=== PATIENT | male | born 1975 | race African-American/Black ===

== ENCOUNTER 2017-01-02 14:24 | Inpatient (IN) | payer MEDICAID ==
[2017-01-02] MEDS ORDERED: ASPIRIN 81 MG TABLET, CHEWABLE PO ONE (14:25)
--- NOTE | 2017-01-02 14:49 | ER Document Report ---
ED Cardiac - General Mode of Arrival: Medic Information source: Patient TRAVEL OUTSIDE OF THE [place] IN LAST 30 DAYS: No - HPI Patient complains to provider of: Chest pain, Other - tachycardia Cardiac risk factors: Smoker Associated symptoms: Other - see notes above <TYRONE DAVIS - Last Filed: 01/02/17 15:29> <FIDEL MARTINEZ - Last Filed: 01/02/17 22:36> - General Chief Complaint: Chest Pain Stated Complaint: CHEST PAIN Time Seen by Provider: 01/02/17 14:31 Notes: 41 year old male with history of hypertension and GERD presents to the ED via EMS complaining of chest pain that started at around 1230 this afternoon. Patient reports when he stood up after sitting on the couch, his heart began to race and he developed chest pain. EMS was called and was given two doses of adenosine (6mg and 12mg) and his SVT resolved after the second dose. Patient reports that he has never experienced anything like this before. Patient also reports that he was checked for thyroid insufficiency secondary to having trouble "using the bathroom", but all tests returned normal. (TYRONE DAVIS) - Related Data Allergies/Adverse Reactions: Penicillins Allergy (Verified 01/02/17 21:13) Home Medications: Current Home Medications L.acidoph & Paracasei,B.lactis [Probiotic] 1 each PO DAILY 01/02/17 [History] Lisinopril/Hydrochlorothiazide [Lisinopril-Hctz 20-25 mg Tab] 1 each PO DAILY [History] Omeprazole [Omeprazole] 1 tab PO BID 01/02/17 [History] Past Medical History - General Information source: Patient - Social History Smoking Status: Current Every Day Smoker Frequency of alcohol use: Occasional Family History: Reviewed & Not Pertinent - Past Medical History Cardiac Medical History: Reports: Hx Hypertension GI Medical History: Reports: Hx Gastroesophageal Reflux Disease - Immunizations Hx Diphtheria, Pertussis, Tetanus Vaccination: Yes <TYRONE DAVIS - Last Filed: 01/02/17 15:29> Review of Systems - Review of Systems Constitutional: No symptoms reported EENT: No symptoms reported Cardiovascular: See HPI, Chest pain, Heart racing Respiratory: No symptoms reported Gastrointestinal: No symptoms reported Genitourinary: No symptoms reported Male Genitourinary: No symptoms reported Musculoskeletal: No symptoms reported Skin: No symptoms reported Hematologic/Lymphatic: No symptoms reported Neurological/Psychological: No symptoms reported -: Yes All other systems reviewed and negative <TYRONE DAVIS - Last Filed: 01/02/17 15:29> Physical Exam - General General appearance: Alert In distress: None - HEENT Head: Normocephalic, Atraumatic Eyes: Normal Extraocular movements intact: Yes Pupils: PERRL - Respiratory Respiratory status: No respiratory distress Chest status: Nontender Breath sounds: Normal Chest palpation: Normal - Cardiovascular Rhythm: Regular Heart sounds: Normal auscultation - Abdominal Inspection: Normal Distension: No distension Tenderness: Nontender - Back Back: Normal - Extremities General upper extremity: Normal inspection, Normal ROM General lower extremity: Normal inspection, Normal ROM - Neurological Neuro grossly intact: Yes - Psychological Associated symptoms: Normal affect, Normal mood - Skin Skin Temperature: Warm Skin Moisture: Dry Skin Color: Normal <TYRONE DAVIS - Last Filed: 01/02/17 15:29> Course - Laboratory Result Diagrams: 01/02/17 14:42 01/02/17 14:42 <TYRONE DAVIS - Last Filed: 01/02/17 15:29> - Laboratory Result Diagrams: 01/02/17 14:42 01/02/17 14:42 - Diagnostic Test Radiology reviewed: Image reviewed, Reports reviewed - Normal chest x-ray - EKG Interpretation by Dc EKG shows normal: Sinus rhythm, [place], Intervals, QRS Complexes. abnormal: ST-T Waves - Borderline T-wave abnormalities Rate: Normal - 99 Rhythm: NSR When compared to previous EKG there are: Changes noted - Consults Dr. Durant Consulted provider: will see as inpatient Dr. Kendrick Time consulted: 22:30 Consulted provider: will come to ER <FIDEL MARTINEZ - Last Filed: 01/02/17 22:36> - Vital Signs Vital signs: Temp Pulse Resp BP Pulse Ox 17 130/85 H 98 01/02/17 21:01 01/02/17 21:00 01/02/17 21:01 - Laboratory Laboratory results interpreted by me: 01/02/17 01/02/17 01/02/17 14:42 14:42 14:42 WBC 3.8 L Seg Neutrophils % 41.1 L Lymphocytes % 47.7 H Absolute Neutrophils 1.5 L Sodium 145.1 H AST 63 H ALT 98 H Creatine Kinase 634 H TSH 0.28 L 01/02/17 19:36 WBC Seg Neutrophils % Lymphocytes % Absolute Neutrophils Sodium AST ALT Creatine Kinase 676 H TSH - EKG Interpretation by Me Additional EKG results interpreted by me: 01/02/17 22:35 The 12-lead done by EMS before and after cardioversion showed that he had a narrow complex supraventricular tachycardia rate of 222 and then converted to a sinus tachycardia with a rate of 100. There were no delta waves seen. (FIDEL MARTINEZ) Discharge <TYRONE DAVIS - Last Filed: 01/02/17 15:29> - Discharge Admitting Provider: Hospitalist Unit Admitted: Telemetry <FIDEL MARTINEZ - Last Filed: 01/02/17 22:36> - Discharge Clinical Impression: Paroxysmal supraventricular tachycardia, Elevated troponin Condition: Stable Scribe Attestation: 01/02/17 22:34 I personally performed the services described in the documentation, reviewed and edited the documentation which was dictated to the scribe in my presence, and it accurately records my words and actions. (FIDEL MARTINEZ) Scribe Documentation - Scribe Written by Shiela:: Shiela Frank, 01/02/2017 1451 acting as scribe for :: Eduarda <TYRONE DAVIS - Last Filed: 01/02/17 15:29>
[2017-01-02 14:56] LABS: ABSOLUTE EOSINOPHILS # (AUTO) 0.1 10^3/uL (0.0-0.6); ABSOLUTE LYMPHOCYTES (AUTO) 1.8 10^3/uL (0.5-4.7); ABSOLUTE MONOCYTES (AUTO) 0.3 10^3/uL (0.1-1.4); ABSOLUTE NEUT (AUTO) 1.5 10^3/uL (1.7-8.2); EOSINOPHILS % (AUTO) 2.2 % (0-6); HEMATOCRIT 44.5 % (37.9-51.0); HEMOGLOBIN 15.3 g/dL (13.5-17.0); HGB HCT DIFFERENCE 1.4; LYMPHOCYTES % (AUTO) 47.7 % (13-45); MEAN CORPUSCULAR HEMOGLOBIN 33.4 pg (27.0-33.4); MEAN CORPUSCULAR HGB CONC 34.4 g/dL (32.0-36.0); MEAN CORPUSCULAR VOLUME 97 fl (80-97); RED BLOOD COUNT 4.59 10^6/uL (4.35-5.55); RED CELL DISTRIBUTION WIDTH 13.9 % (11.5-14.0); SEGMENTED NEUTROPHILS % (AUTO) 41.1 % (42-78); WHITE BLOOD COUNT 3.8 10^3/uL (4.0-10.5)
[2017-01-02 15:16] LABS: ALANINE AMINOTRANSFERASE 98 U/L (21-72); ALBUMIN 4.3 g/dL (3.5-5.0); ALKALINE PHOSPHATASE 80 U/L (38-126); ANION GAP 12 (5-19); ASPARTATE AMINO TRANSFERASE 63 U/L (17-59); BILIRUBIN,DIRECT 0.3 mg/dL (0.0-0.4); BILIRUBIN,TOTAL 0.6 mg/dL (0.2-1.3); BLOOD UREA NITROGEN 11 mg/dL (7-20); CALCIUM 9.9 mg/dL (8.4-10.2); CARBON DIOXIDE 30 mmol/L (22-30); CHLORIDE 103 mmol/L (98-107); CREATINE KINASE 634 U/L (55-170); CREATININE RESULT 1.09 mg/dL (0.52-1.25); GLUCOSE 104 mg/dL (75-110); POTASSIUM 3.8 mmol/L (3.6-5.0); SODIUM 145.1 mmol/L (137-145); TOTAL PROTEIN 7.5 g/dL (6.3-8.2)
[2017-01-02 15:26] LABS: CREATINE KINASE MB 0.73 ng/mL (<4.55); TROPONIN I 0.013 ng/mL
[2017-01-02 15:32] LABS: FREE T3 4.5 pg/mL (2.77-5.27)
[2017-01-02 15:45] LABS: THYROID STIMULATING HORMONE 0.28 uIU/mL (0.47-4.68)
[2017-01-02] MEDS ORDERED: NORMAL SALINE 1000 ML 1,000 ML IV ONE ×2 (16:51→22:24)
[2017-01-02 18:49] LABS: APPEARANCE,URINE CLEAR; BILIRUBIN,URINE NEGATIVE (NEGATIVE); GLUCOSE, URINE NEGATIVE (NEGATIVE); KETONES,URINE NEGATIVE (NEGATIVE); LEUKOCYTE ESTERASE,URINE NEGATIVE (NEGATIVE); NITRITE,URINE NEGATIVE (NEGATIVE); PROTEIN,URINE NEGATIVE (NEGATIVE); URINE SPECIFIC GRAVITY 1.016; UROBILINOGEN,URINE NEGATIVE mg/dL (<2.0)
[2017-01-02 19:15] LABS: URINE BARBITURATES SCREEN NEGATIVE; URINE METHADONE SCREEN NEGATIVE; URINE OPIATES LOW NEGATIVE; URINE PHENCYCLIDINE SCREEN NEGATIVE
[2017-01-02 20:23] LABS: TROPONIN I 0.201 ng/mL
[2017-01-02 22:27] LABS: ADD ON TESTING BLD IN LAB ACKNOWLEDGE
[2017-01-02] MEDS ORDERED: HEPARIN SOD (PORCINE) 5,000 UNIT/ML 1 ML SYRINGE SUBCUT ONE (22:45)
[2017-01-02] MEDS ORDERED: ATORVASTATIN CALCIUM 80 MG TABLET PO ONE (22:45)
[2017-01-02 22:58] LABS: MAGNESIUM 1.9 mg/dL (1.6-2.3)
--- NOTE | 2017-01-02 23:36 | EKG REPORT ---
SEVERITY:- BORDERLINE ECG - SINUS RHYTHM BORDERLINE T WAVE ABNORMALITIES : Confirmed by: Bernabe Engel 02-Jan-2017 23:36:17
[2017-01-03 01:25] LABS: CREATINE KINASE MB 1.19 ng/mL (<4.55); TROPONIN I 0.104 ng/mL
--- NOTE | 2017-01-03 02:52 | PDOC H&P ---
History of Present Illness Admission Date/PCP: 01/02/17 22:30 Patient complains of: Palpitations and chest tightness History of Present Illness: SKY PRICE JR is a 41 year old male with a past medical history of hypertension , nasal polyps, obstructive sleep apnea, and GERD. Who was in his usual state of health until approximately 2 hours prior to presentation with complaint of sudden onset of palpitations and chest tightness without nausea vomiting there was some shortness of breath. He was seen by EMS at the scene with a heart rate of 220 believed to be SVT. He received adenosine 6 mg followed by 12 mg resulting in sinus tachycardia. Patient admits several previous episodes that are short-lived resolving spontaneously. He admits daily compliance with Cpap, denies new medications or binging alcohol or excessive caffeine. In the emergency room his found to have elevated troponin and a chest x-ray suggestive of congestive heart failure. He is referred to the hospitalist for admission, denying chest pain. Past Medical History Cardiac Medical History: Reports: Hypertension Pulmonary Medical History: Reports: Sleep Apnea GI Medical History: Reports: Gastroesophageal Reflux Disease Psychiatric Medical History: Reports: Tobacco Dependency Past Surgical History Past Surgical History: Reports: Other - Nasal polypectomy Social History Information Source: Patient Lives with: Family Smoking Status: Current Every Day Smoker Cigarettes Packs Per Day: 1 Number of Years Smokin Drugs: None - Advance Directive Resuscitation Status: Full Code Family History Family History: Hypertension Parental Family History Reviewed: Yes Children Family History Reviewed: Yes Sibling(s) Family History Reviewed.: Yes Medication/Allergy Home Medications: L.acidoph & Paracasei,B.lactis [Probiotic] 1 each PO DAILY 01/02/17 Lisinopril/Hydrochlorothiazide [Lisinopril-Hctz 20-25 mg Tab] 1 each PO DAILY Omeprazole [Omeprazole] 1 tab PO BID 01/02/17 Allergies/Adverse Reactions: Penicillins Allergy (Verified 01/02/17 21:13) Review of Systems Constitutional: ABSENT: chills, fever(s), headache(s), weight gain, weight loss Eyes: ABSENT: visual disturbances Ears: ABSENT: hearing changes Cardiovascular: ABSENT: chest pain, dyspnea on exertion, edema, orthropnea, palpitations Respiratory: ABSENT: cough, hemoptysis Gastrointestinal: ABSENT: abdominal pain, constipation, diarrhea, hematemesis, hematochezia, nausea, vomiting Genitourinary: ABSENT: dysuria, hematuria Musculoskeletal: ABSENT: joint swelling Integumentary: ABSENT: rash, wounds Neurological: ABSENT: abnormal gait, abnormal speech, confusion, dizziness, focal weakness, syncope Psychiatric: ABSENT: anxiety, depression, homidical ideation, suicidal ideation Endocrine: ABSENT: cold intolerance, heat intolerance, polydipsia, polyuria Hematologic/Lymphatic: ABSENT: easy bleeding, easy bruising Physical Exam Vital Signs: Temp Pulse Resp BP Pulse Ox 97.6 F 75 18 131/69 H 97 01/03/17 00:38 01/03/17 01:01 01/03/17 00:38 01/03/17 00:38 01/03/17 00:38 General appearance: PRESENT: no acute distress, cooperative, well-developed, well-nourished Head exam: PRESENT: atraumatic, normocephalic Eye exam: PRESENT: conjunctiva pink, EOMI, PERRLA, other - Mild exophthalmos. ABSENT: scleral icterus Ear exam: PRESENT: normal external ear exam Mouth exam: PRESENT: moist, tongue midline Neck exam: PRESENT: full ROM, thyromegaly - Diffuse goiter, other - Parotid enlargement bilaterally. ABSENT: carotid bruit, JVD, lymphadenopathy, meningismus, tenderness, tracheal deviation Respiratory exam: PRESENT: crackles, prolonged expiratory phas, symmetrical. ABSENT: rales, rhonchi, unlabored, wheezes Cardiovascular exam: PRESENT: gallop, RRR, +S1, +S2, systolic murmur Pulses: PRESENT: normal dorsalis pedis pul Vascular exam: PRESENT: normal capillary refill GI/Abdominal exam: PRESENT: normal bowel sounds, soft. ABSENT: distended, guarding, mass, organolmegaly, rebound, tenderness Rectal exam: PRESENT: deferred Extremities exam: PRESENT: full ROM. ABSENT: calf tenderness, clubbing, pedal edema Neurological exam: PRESENT: alert, awake, oriented to person, oriented to place , oriented to time, oriented to situation, CN II-XII grossly intact. ABSENT: motor sensory deficit Psychiatric exam: PRESENT: appropriate affect, normal mood. ABSENT: homicidal ideation, suicidal ideation Skin exam: PRESENT: dry, intact, warm. ABSENT: cyanosis, rash Results Laboratory Results: 01/03/17 00:52 CK-MB (CK-2) 1.19 Troponin I 0.104 Impressions: Chest X-Ray 01/02/17 14:25 IMPRESSION: NO ACUTE RADIOGRAPHIC FINDING IN THE CHEST. Assessment & Plan - Diagnosis (1) Paroxysmal supraventricular tachycardia Is this a current diagnosis for this admission?: YesPlan: New and Acute continue cardiac monitoring obtain serial cardiac enzymes and risk factors for coronary artery disease, 2-D echo consider cardiology consult. (2) Elevated troponin Is this a current diagnosis for this admission?: YesPlan: Likely secondary to SVT continue trending cardiac enzymes consider cardiac stress test and/or cardiology consultation (3) Graves disease Is this a current diagnosis for this admission?: YesPlan: Patient has a diffuse goiter I'll obtain thyroid function study and thyroid receptor antibody and thyroid ultrasound. Consider propanolol and methimazole (4) Obstructive sleep apnea Is this a current diagnosis for this admission?: YesPlan: Resume outpatient cpap - Time Time Spent: 50 to 70 Minutes - Inpatient Certification Medical Necessity: Need Close Monitoring Due to Risk of Patient Decompensation
[2017-01-03] MEDS ORDERED: LANSOPRAZOLE 30 MG TAB.RAP.DR PO SCH (06:00)
[2017-01-03] MEDS: HEPARIN SOD (PORCINE) 5,000 UNIT/ML 1 ML SYRINGE SUBCUT SCH ×3 (06:47→21:30)
[2017-01-03 07:28] LABS: ANION GAP 14 (5-19); BLOOD UREA NITROGEN 11 mg/dL (7-20); CALCIUM 9.4 mg/dL (8.4-10.2); CARBON DIOXIDE 26 mmol/L (22-30); CHLORIDE 103 mmol/L (98-107); CHOLESTEROL 213.49 mg/dL (0-200); CREATINE KINASE 604 U/L (55-170); CREATININE RESULT 0.93 mg/dL (0.52-1.25); Direct HDL 24 mg/dL (>40); GLUCOSE 103 mg/dL (75-110); POTASSIUM 3.7 mmol/L (3.6-5.0); SODIUM 143.1 mmol/L (137-145); TRIGLYCERIDES 208 mg/dL (<150)
[2017-01-03 07:38] LABS: CREATINE KINASE MB 1.06 ng/mL (<4.55); TROPONIN I 0.046 ng/mL
[2017-01-03 07:39] LABS: DIRECT LDL 135 mg/dL (<100)
[2017-01-03 07:43] LABS: VLDL CHOLESTEROL 41.6 mg/dL (10-31)
[2017-01-03] MEDS: DOCUSATE SODIUM 100 MG CAPSULE PO SCH ×2 (09:46→17:30)
[2017-01-03] MEDS ORDERED: (PENDING PHARMACY ID) (Omeprazole [Omeprazole] 1 TAB) PO SCH (10:00)
[2017-01-03] MEDS ORDERED: METOPROLOL TARTRATE 25 MG TABLET PO ONE (13:00)
[2017-01-03 13:34] LABS: CREATINE KINASE MB 1.28 ng/mL (<4.55); TROPONIN I 0.031 ng/mL
--- NOTE | 2017-01-03 13:51 | EKG REPORT ---
SEVERITY:- NORMAL ECG - SINUS RHYTHM : Confirmed by: Bernabe Engel 03-Jan-2017 13:51:00
[2017-01-03] MEDS ORDERED: NICOTINE 14 MG/24 HR PATCH.TD24 TD PRN (15:16)
--- NOTE | 2017-01-03 15:19 | PDOC PROGRESS REPORT ---
Subjective Progress Note for:: 01/03/17 Subjective:: Patient has had no further runs of SVT. Patient denies chest pain, shortness of breath, abdominal pain, nausea, vomiting , fevers, chills, diarrhea, constipation, headache, new onset weakness. Patient denies recently taking any antihistamines or cold medications and also denies the use of coffee or energy drinks. Patient does report regular alcohol usage. And does smoke. Physical Exam Vital Signs: Temp Pulse Resp BP Pulse Ox 97.6 F 73 18 131/69 H 97 01/03/17 00:38 01/03/17 07:00 01/03/17 00:38 01/03/17 00:38 01/03/17 00:38 Intake & Output 01/02/17 01/03/17 01/04/17 06:59 06:59 06:59 Intake Total 0 Output Total 200 Balance -200 Weight 122.8 kg Exam: General: Awake alert and oriented x3, no acute respiratory distress HEENT: AT/NC, PERRL, EOMI, oropharynx is moist, pink, no scleral icterus, no conjunctival injection Neck: No JVD, trachea midline Chest: Prolonged expiratory phase, Clear to auscultation bilaterally, no wheezes rhonchi or rales CV: Regular rate and rhythm, normal S1 and S2, no murmur, rub, or gallop Abdomen: Soft, nontender to palpation, nondistended, active bowel sounds; no rebound, rigidity, or guarding Extremities: No cyanosis or edema; + clubbing Neuro: Cranial nerves II through XII are grossly intact without focal deficits; awake alert and oriented x3 Psych: Normal mood and affect Results Laboratory Results: 01/03/17 00:52 CK-MB (CK-2) 1.19 Troponin I 0.104 Impressions: Chest X-Ray 01/02/17 14:25 IMPRESSION: NO ACUTE RADIOGRAPHIC FINDING IN THE CHEST. Assessment & Plan - Diagnosis (1) Paroxysmal supraventricular tachycardia Is this a current diagnosis for this admission?: YesPlan: Patient's cardiac enzymes are trending down. Appreciate cardiology input. Will initiate patient on metoprolol 12.5 by mouth twice a day. Patient is scheduled for stress test or morning. (2) Leukopenia Qualifiers: Leukopenia type: unspecified Qualified Code(s): D72.819 - Decreased white blood cell count, unspecified Is this a current diagnosis for this admission?: YesPlan: Likely secondary to accepted racial variant will monitor. (3) Hyperlipidemia Qualifiers: Hyperlipidemia type: unspecified Qualified Code(s): E78.5 - Hyperlipidemia, unspecified Is this a current diagnosis for this admission?: YesPlan: Patient on Lipitor. (4) Elevated troponin Is this a current diagnosis for this admission?: YesPlan: This is likely secondary to strain. (5) Graves disease Is this a current diagnosis for this admission?: YesPlan: Patient reports recently having seen a transportation solutions manager at [facility]. He has a follow-up appointment with this person. Current free T3 and free T4 levels are normal. Thyroid ultrasound reveals diffuse goiter and colloidal cyst. (6) Obstructive sleep apnea Is this a current diagnosis for this admission?: YesPlan: Patient may use own CPAP (7) Tobacco abuse Is this a current diagnosis for this admission?: YesPlan: Patient has been advised to stop. Counseling last greater than 3 minutes. Patient is offered nicotine replacement. (8) Obesity with serious comorbidity Is this a current diagnosis for this admission?: YesPlan: Patient has been advised to alter his diet and to exercise modestly after discussing this with his primary care physician - Time Time Spent with patient: 25-34 minutes Medications reviewed and adjusted accordingly: Yes Anticipated discharge: Home Within: within 24 hours
[2017-01-03] MEDS: LANSOPRAZOLE 30 MG TAB.RAP.DR PO SCH (15:43)
--- NOTE | 2017-01-03 17:21 | XCELERA REPORT ---
[address] [address] Transthoracic Echocardiogram Report Name: SERGIO PRICENIGEL Griffin JR Age: 41 yrs Gender: Male : 1975 Patient Status: Inpatient Patient Location: 5\S\532\S\A Study Date: 01/03/2017 10:18 AM Height: 72 in Weight: 235 lb BSA: 2.3 m2 Procedure: A two-dimensional transthoracic echocardiogram with color flow and Doppler was performed. Study Quality: Fair. Reason For Study: svt, elevated troponin History: svt, elevated troponin. Ordering Physician: ALEXA GREEN Performed By: Jenny Brown Interpretation Summary The left ventricle is normal in size. There is normal left ventricular wall thickness. LV EF is > than 60% Left ventricular systolic function is normal. Doppler measurements suggest normal left ventricular diastolic function The left ventricular wall motion is normal. There is no thrombus. There is no ventricular septal defect visualized. The right ventricle is normal in size and function. The left atrial size is normal. There is no evidence of mitral valve prolapse. There is no vegetation seen on the mitral valve. There is no mitral valve stenosis. There is a trace amount of mitral regurgitation There is no aortic valve stenosis There is no LVOT obstruction. No aortic regurgitation is present. There is no tricuspid stenosis. There is a trace amount of tricuspid regurgitation Right ventricular systolic pressure is normal. RVSP is 27 mm of Hg ,with RA mean of 5. There is no pulmonic valvular stenosis. There is no pulmonic valvular regurgitation. The aortic root is normal size. There is no pericardial effusion. MMode/2D Measurements \T\ Calculations RVDd: 2.7 cm LVIDd: 4.9 cm FS: 38.9 % Ao root diam: 2.6 cm IVSd: 0.95 cm LVIDs: 3.0 cm EDV(Teich): 112.8 ml LVPWd: 1.0 cm ESV(Teich): 34.8 ml Ao root area: 5.2 cm2 EF(Teich): 69.1 % LA dimension: 3.7 cm Doppler Measurements \T\ Calculations MV E max aleksandra: MV P1/2t max aleksandra: Ao V2 max: LV V1 max P.2 cm/sec 57.2 cm/sec 117.8 cm/sec 4.7 mmHg MV A max aleksandra: MV P1/2t: 62.0 msec Ao max PG: LV V1 max: 45.9 cm/sec 5.6 mmHg 108.3 cm/sec MV E/A: 1.2 MVA(P1/2t): 3.6 cm2 MV dec slope: 270.6 cm/sec2 MV dec time: 0.21 sec PA V2 max: TR max aleksandra: 79.5 cm/sec 233.5 cm/sec PA max PG: TR max P.8 mmHg 2.5 mmHg Left Ventricle The left ventricle is normal in size. There is normal left ventricular wall thickness. LV EF is > than 60%. Left ventricular systolic function is normal. Doppler measurements suggest normal left ventricular diastolic function. The left ventricular wall motion is normal. There is no thrombus. There is no ventricular septal defect visualized. Right Ventricle The right ventricle is normal in size and function. Atria The right atrium is normal. The left atrial size is normal. The interatrial septum is intact with no evidence for an atrial septal defect. Mitral Valve There is no evidence of mitral valve prolapse. There is no vegetation seen on the mitral valve. There is no mitral valve stenosis. There is a trace amount of mitral regurgitation. Aortic Valve There is no aortic valvular vegetation. There is no aortic valve stenosis. There is no LVOT obstruction. No aortic regurgitation is present. Tricuspid Valve There is no tricuspid stenosis. There is a trace amount of tricuspid regurgitation. Right ventricular systolic pressure is normal. RVSP is 27 mm of Hg ,with RA mean of 5. Pulmonic Valve There is no pulmonic valvular stenosis. There is no pulmonic valvular regurgitation. Great Vessels The aortic root is normal size. Effusions There is no pericardial effusion. : ALEXA GREEN > Dania Fischer
[2017-01-03] MEDS: METOPROLOL TARTRATE 25 MG TABLET PO SCH (20:13)
[2017-01-03] MEDS: LISINOPRIL 10 MG TABLET PO SCH (21:30)
[2017-01-03] MEDS: LACTOBACILLUS ACIDOPHILUS 250 MG TAB PO SCH (21:30)
--- NOTE | 2017-01-03 21:38 | CONSULTATION REPORT E ---
Consultation Report NAME: SKY PRICE : 1975 AGE: 41Y DATE: 01/03/2017 ROOM: 532 A TO: BRENDA RODRIGUEZ M.D. FROM: ALEXA GREEN M.D. Requesting Physician REASON FOR CONSULTATION: SVT and elevated troponin I. NOTE: Dr. Harjeet Lerner in the ER called me last night about this patient and explained to me the circumstances of the patient having SVT and having converted to sinus rhythm and that there was a troponin I leak. I reviewed the chart on the computer and decided that the patient was stable enough to stay here, and since he had abnormal liver function tests had asked him to stop the patient's Dyazide and continue the lisinopril. I again saw the patient today on 01/03/2017 and I was with the patient from 11:30 a.m. to 12:10 p.m., and a total of 40 minutes were spent on this patient with more than 50% of the time spent on direct patient care and also reviewing the patient's medications and discussions with the attending physician adjusting the patient's medications and adding medications. HISTORY OF PRESENT ILLNESS: The patient is a 41-year-old Afro Tajik male who is a full-time student with a history of hypertension, GERD, and obstructive sleep apnea who wears a CPAP and also history of nasal polyps without any aspirin allergy. The patient states that about 2 hours prior to his coming to the emergency room, the patient sat up in bed and got up to walk, at which time he had sudden onset of palpitations with severe shortness of breath, very rapid beating of the heart, and chest tightness. This lasted for about 25 minutes until the PMT came. The PMT found the patient to be in rapid SVT at a rate of about 220-230 with a stable blood pressure. They initially gave him 6 mg of adenosine and subsequently 12 mg IV adenosine which the patient converted. The subsequent EKG showed normal sinus rhythm without any acute changes, but the SVT had significant ST-segment depression, which to me is a little more than expected with repolarization changes associated with an SVT. Also, there are no strips when the patient converted from the SVT to sinus rhythm to see if this is atrial flutter or an SVT, but I think it is an SVT, since there was an abrupt sensation of the SVT and the patient resumed sinus rhythm. The patient at present denies any chest pain or discomfort. There is no chest tightness. There is no PND or orthopnea, shortness of breath or leg edema. He denies any past history of palpitations or SVT. PAST MEDICAL HISTORY: Positive for history of hypertension. The patient is on lisinopril/hydrochlorothiazide. He has a history of sleep apnea and uses his CPAP regularly, the last was checked in August. He has history of nasal polyps and also gastric polyps that were removed by polypectomy. He had nasal polypectomy but he states that they have regrown. He states it is difficult for him to breathe through his nose. He has no past history of SVT, palpitations, DC or anginal symptoms, coronary artery disease, or symptoms of heart failure. There is no PND or orthopnea or syncope. There is history of diabetes mellitus or thyroid disease. There is no history of COPD or asthma. He denies any history of TIA, CVA, migraines or headaches. There is no history of chronic kidney disease. The patient states that in the past he had ablation of the thyroid gland with iodine but he states subsequent to that he has not had any need to take thyroid replacement. He also has a history of GERD controlled with omeprazole. MEDICATIONS: 1. Lisinopril/hydrochlorothiazide 1 tablet daily, the dose is unknown. 2. He takes omeprazole 40 mg p.o. b.i.d. and at bedtime. 3. He is also on beta lactamase 1 capsule p.o. q.12 h. HOSPITAL MEDICATIONS: 1. Atorvastatin 80 mg p.o. x1 and 80 mg p.o. at bedtime. 2. Colace 100 mg p.o. b.i.d. 3. Heparin 5000 units subcutaneously q.8 h. 4. He did get normal saline bolus of 1000 mL and subsequently the patient is on a 60 mL/hr normal saline drip. 5. He is on lactobacillus, acidophilus, 250 mg p.o. q.12 h. 6. He is on lansoprazole 30 mg p.o. b.i.d. 7. He is on lisinopril 10 mg p.o. q.12 h. 8. After my recommendation he is being started on metoprolol 12.5 mg p.o. q.12 h. with the first dose now. 9. He is also on Nicoderm transdermal patch 40 mg/24 hours. ALLERGIES: PENICILLIN. SOCIAL HISTORY: The patient smokes. He also drinks alcohol but in moderation. There is no heavy alcohol usage. FAMILY HISTORY: Positive for hypertension in his parents and also his sister, and one of his sisters had a CVA. There is no history of coronary artery disease in the family. PAST SURGICAL HISTORY: Positive for left eye surgery and then gastric polypectomy and nasal polypectomy. REVIEW OF SYMPTOMS: CONSTITUTIONAL: Denies any fever, chills or rigors. HEENT: No headaches or head injury. No dizziness except when he had this episode of SVT. Eyes, no history of amblyopia or diplopia. No history of amaurosis fugax. Ears, no history of hearing loss, no tinnitus, no history of recurrent ear infections. Nose, history of nasal polyps present but no history of nosebleeds. Mouth, no history of altered taste sensation, no history of ulcers in the mouth, no bleeding from the gums. Throat, there is no odynophagia or dysphagia. There are no recurrent sore throats. SKIN: There is no pruritus. There is yellowish discoloration of the skin. There is no psoriasis and there is no skin cancer. NECK: No neck pain, no goiter. No lymphadenopathy. LUNGS: There is no history of cough or sputum production. No history of asthma or COPD. No history of symptoms of respiratory tract infection or pneumonia. No pleuritic chest pain. No history of pulmonary embolism. He has a history of sleep apnea and uses a CPAP regularly, and when he wakes up in the morning he feels fresh. He recently had a CPAP titrated in August of this year. CARDIAC: History of hypertension but no history of congestive heart failure. This is the first episode of palpitation/SVT for the patient. There is no prior history of palpitations. There is no history of PND, orthopnea or leg edema. There is no history of coronary artery disease. The patient did have chest pain and he had the elevated troponin I which is now trending down. There is no history of syncope. There is no history of congenital heart disease. ENDOCRINE: No history of diabetes mellitus. The patient states about a year ago he had ablation of his thyroid with radioactive iodine. He is not sure of all the details but he is not on any replacement now. There is no polydipsia or polyuria. No history of heat or cold intolerance. MUSCULOSKELETAL: Denies arthritis or collagen vascular disease. RENAL: No history of symptoms of enlarged prostate, no chronic kidney disease, no symptoms of UTI, no history of hematuria, pyuria or dysuria. CENTRAL NERVOUS SYSTEM: No history of TIA or CVA. No history of headaches, migraines or seizures. History of sleep apnea. No history of gait imbalance. PSYCHIATRIC: No history of anxiety or depression. No suicidal ideation. VASCULAR: No history of calf or buttock claudication. No history of DVT. HEMATOLOGICAL: No history of bleeding diathesis. No history of clotting disorders. PHYSICAL EXAMINATION: GENERAL: Patient is morbidly obese at present in no acute distress. VITAL SIGNS: He is afebrile with a temperature of 97.5 degrees Fahrenheit, pulse is 78 beats per minute, blood pressure 120/69, respirations are 16 per minute, 02 sats are 98% on room air. HEENT: Head is atraumatic, normocephalic. Eyes: Pupils are equal, round, regular, reactive to light and accommodation. Extraocular movements are normal. There is no conjunctival pallor. There is no scleral icterus. Ears: Tympanic membranes are intact. External auditory canals are clear. Nose: There is no deviated nasal septum. There are some nasal polyps present. Mouth: Mucous membranes of the mouth are moist. Tongue is moist. There are no ulcers. There is no bleeding from the gums. Throat: There is no redness of the oropharynx. There are no exudates in the throat. SKIN: There are no skin rashes. There are no skin lesions . There is no petechia or ecchymosis. NECK: Supple. There is no JVD. There is no lymphadenopathy. There is no goiter. There is no neck stiffness. There is no JVD. Carotids are equal. There is no bruit. Trachea is central. LUNGS: Clear to auscultation and percussion. HEART: S1 and S2 are heard. There is no S3 gallop. There is no S4 gallop. There is a systolic murmur in the left sternal border and the apex with no radiation. There is no rub. ABDOMEN: Soft, nontender. There is no hepatosplenomegaly. Bowel sounds are well heard. There are no tender areas or masses. There is no rebound, guarding or rigidity. EXTREMITIES: Femorals are well felt. Leg pulses are well felt. There is no femoral bruits. There is no pedal edema. There is no DVT or cellulitis. There is no calf tenderness. There is no cyanosis or clubbing. CENTRAL NERVOUS SYSTEM: The patient is conscious, awake, alert, oriented x3 with no focal deficits. PSYCHIATRIC: The patient's judgment and insight are intact. His affect is normal. DIAGNOSTIC TEST RESULTS: The patient's chest x-ray is negative. The heart rate is normal. There is no CHF. The patient's EKG shows sinus rhythm with significant ST-segment depression, which converted with adenosine, most likely AV lucien reentrant tachycardia. The patient's EKG this morning show sinus rhythm, within normal limits. The MI interval is not short. There are no delta waves. The patient's white count is 3800, hemoglobin is 15.3, hematocrit is 44.5, and the platelet count is 177,000. The patient's sodium is 143.1, potassium is 3.7, chloride 103, CO2 is 26, the patient's BUN was 7, creatinine 0.93, GFR is greater than 60, glucose is 103, calcium is 9.4, and his magnesium yesterday was 1.9. His troponin I which initially was 0.188 asha to 0.201 and then has trended down to 0.104 and then 0.046, and subsequently 0.031. His CPK-MBs are negative. On 01/02, the patient's total bilirubin was 0.6, direct bilirubin 0.3, his AST is elevated at 63, ALT is 98. The patient's alkaline phosphatase is 80, patient's CK is 634. The patient's albumin is 4.3, total protein is 7.5, The patient's TSH is 0.28, free T4 was normal at 1.19, free T3 is normal at 4.50. His triglycerides are 208 and his LDL cholesterol is 135 which is high, his HDL cholesterol is low at 24. IMPRESSION: 1. Supraventricular tachycardia converted to sinus rhythm. 2. Elevated troponin I most likely secondary to SVT, but the patient does have multiple CAD risk factors. 3. Hypertension. 4. Abnormal LFTs. Can be caused by a combination of alcohol and hydrochlorothiazide. 5. Gastroesophageal reflux disease. 6. Multiple coronary artery disease risk factors such as age +/-, hypertension, dyslipidemia and smoking. Also, the patient had significant ST-segment depression during his SVT, which can be duenthe SVT causing repolarization changes, but also the patient's troponin I was elevated, which also can be due to SVT, but since the patient has multiple CAD risk factors, needs further risk stratification. 7. Obstructive Sleep Apnea. Continue sleep apnea. 8. Dyslipidemia with low HDL, high LDL, and hyper-triglyceridemia. Unfortunately due to abnormal liver function tests, at present time cannot start the patient on anti-lipid medication. Discussed diet with the patient. 9. Tobacco abuse disorder. Smoking cessation counseling down. RECOMMENDATIONS: I would stop the patient's atorvastatin and stop the patient's hydrochlorothiazide, continue lisinopril, start the patient on aspirin 81 mg enteric coated, start the patient on Lopressor initially at 12.5 mg p.o. q.12 h. and increase it as tolerated. Would strongly recommend an echo for LV ejection fraction and also will schedule the patient for IV Lexiscan Cardiolite stress test in the a.m. since the troponin I are trending. I would hold the Lopressor tonight and tomorrow morning prior to stress testing and start back later. Note: Later would recommend a 30-day event monitor as an outpatient. CODE STATUS: The patient is a FULL CODE. His is his surrogate healthcare decision maker. Note: Forty minutes spent on this patient with more than 50% of the time spent on direct patient care and also reviewing the patient's medications, adjusting the patient's medications, and discussions with the hospitalist taking care of the patient regarding the management plan of this patient and also discussed with patient and patient's sisters present. When the echo is done, will discuss the findings with the patient. Thanking you. DICTATING PHYSICIAN: BRENDA RODRIGUEZ M.D. [id number] PHY#: [id number] ID: [id number] JOB#: [id number] ACCT: [id number] cc:BRENDA RODRIGUEZ M.D. > MTDD
[2017-01-03] MEDS ORDERED: PARACASEI B LACTIS PO SCH (22:00)
[2017-01-03] MEDS ORDERED: ATORVASTATIN CALCIUM 80 MG TABLET PO SCH (22:00)
[2017-01-03] MEDS ORDERED: ACIDOPH PO SCH (22:00)
[2017-01-04] MEDS: HEPARIN SOD (PORCINE) 5,000 UNIT/ML 1 ML SYRINGE SUBCUT SCH ×2 (06:17→13:24)
[2017-01-04 07:47] LABS: ALANINE AMINOTRANSFERASE 93 U/L (21-72); ALBUMIN 3.8 g/dL (3.5-5.0); ALKALINE PHOSPHATASE 66 U/L (38-126); ASPARTATE AMINO TRANSFERASE 60 U/L (17-59); BILIRUBIN,DIRECT 0.4 mg/dL (0.0-0.4); BILIRUBIN,TOTAL 0.8 mg/dL (0.2-1.3); TOTAL PROTEIN 7.1 g/dL (6.3-8.2)
[2017-01-04] MEDS: DOCUSATE SODIUM 100 MG CAPSULE PO SCH (10:49)
[2017-01-04] MEDS: LANSOPRAZOLE 30 MG TAB.RAP.DR PO SCH (10:49)
[2017-01-04] MEDS: METOPROLOL TARTRATE 25 MG TABLET PO SCH (10:50)
[2017-01-04] MEDS: LACTOBACILLUS ACIDOPHILUS 250 MG TAB PO SCH (10:51)
[2017-01-04] MEDS: LISINOPRIL 10 MG TABLET PO SCH (10:51)
[2017-01-04] MEDS ORDERED: REGADENOSON INJ 0.4 MG/5 ML DISP.SYRIN IV ONE (11:24)
--- NOTE | 2017-01-04 12:06 | EKG REPORT ---
SEVERITY:- BORDERLINE ECG - SINUS RHYTHM BORDERLINE T WAVE ABNORMALITIES : Confirmed by: Bernabe Engel 04-Jan-2017 12:06:35
[2017-01-04 16:16] VITALS: BP 136/76
--- NOTE | 2017-01-04 17:01 | PDOC DISCHARGE SUMMARY ---
General - Admit/Disc Date/PCP Admission Date/Primary Care Provider: 01/03/17 10:57 Discharge Date: 01/04/17 - Discharge Diagnosis (1) Paroxysmal supraventricular tachycardia Is this a current diagnosis for this admission?: Yes (2) Essential hypertension Is this a current diagnosis for this admission?: Yes (3) Transaminitis Is this a current diagnosis for this admission?: Yes (4) Thyroid cyst Is this a current diagnosis for this admission?: Yes (5) Hyperlipidemia Is this a current diagnosis for this admission?: Yes (6) Obstructive sleep apnea Is this a current diagnosis for this admission?: Yes - Additional Information Resuscitation Status: Full Code Discharge Diet: Cardiac Discharge Activity: Activity As Tolerated, Balance Activity w/Rest Home Medications: Adriaacidoph & Mile Jenningslactis [Probiotic] 1 each PO Q12 01/03/17 Omeprazole 40 mg PO BIDACBS 01/03/17 Aspirin 81 mg PO DAILY #1 pkg 01/04/17 Lisinopril [Prinivil 10 mg Tablet] 10 mg PO Q12 #60 tablet 01/04/17 Metoprolol Tartrate [Lopressor 25 mg Tablet] 12.5 mg PO Q12 #60 tablet 01/04/17 Additional Information: Follow-up result all thyroid antibody test as outpatient with primary care physician. History of Present Illness Patient complains of: Palpitation and chest tightness History of Present Illness: SKY PRICE JR is a 41 year old male, history of hypertension, obstructive sleep apnea, developed palpitation and chest tightness a few hours duration, ambulance was called, patient was found to be in SVT where the patient receive adenosine and rectum showed sinus tachycardia. Patient was brought to the emergency room for evaluation. Chest x-ray revealed some congestion. For detailsrefer to history and physical examination performed by the admitting physician. Hospital Course Hospital Course: The patient was admitted to the telemetry. The patient was referred to cardiology for further evaluation. Serial cardiac enzymes were obtained and noted to be abnormal. The patient was began on metoprolol. His liver function tests versus abnormal. Lipid panel was likewise elevated, but due to the abnormality nor recommendations of statin was made. Recommendation of dietary management was instituted. Likewise his diuretic was held and just maintain her on GENEVA inhibitor. Cardiology recommended to maintain the GENEVA inhibitor. 2- D echocardiogram shows no significant wall motion abnormality, no significant valvular defect. Eventually a stress test was performed and reportedly was negative. The patient improved. Tachycardia resolved. Patient cleared by cardiology to be discharged. Patient course was noted for history suggestive of Graves' disease and patient being followed by endocrinology, however the patient's thyroid panel was normal. Thyroid ultrasound shows a thyroid cyst. Thyroid antibody test is pending. He was advised to follow up result on an outpatient basis. Physical Exam Vital Signs: Temp Pulse Resp BP Pulse Ox 97.6 F 78 16 136/76 H 96 01/04/17 15:43 01/04/17 15:43 01/04/17 15:43 01/04/17 15:43 01/04/17 15:43 Intake & Output 01/03/17 01/04/17 01/05/17 06:59 06:59 06:59 Intake Total 2280 Balance 2280 Weight 109.2 kg General appearance: PRESENT: no acute distress, cooperative Head exam: PRESENT: normocephalic Eye exam: PRESENT: EOMI Mouth exam: PRESENT: moist, neck supple Neck exam: ABSENT: JVD Respiratory exam: PRESENT: clear to auscultation trudy Cardiovascular exam: PRESENT: RRR. ABSENT: gallop, systolic murmur GI/Abdominal exam: PRESENT: normal bowel sounds, soft. ABSENT: distended, tenderness Extremities exam: ABSENT: pedal edema Neurological exam: PRESENT: alert, awake, oriented to person, oriented to place , oriented to time, oriented to situation Skin exam: PRESENT: dry, warm. ABSENT: cyanosis Results Laboratory Results: 01/04/17 06:36 Total Bilirubin 0.8 AST 60 H ALT 93 H Alkaline Phosphatase 66 Total Protein 7.1 Albumin 3.8 01/03/17 01/04/17 12:52 06:36 CK-MB (CK-2) 1.28 Troponin I 0.031 < 0.012 Impressions: Chest X-Ray 01/02/17 14:25 IMPRESSION: NO ACUTE RADIOGRAPHIC FINDING IN THE CHEST. Thyroid Ultrasound 01/03/17 00:00 IMPRESSION: Colloid cyst left midpole gland of doubtful significance. No focal solid masses. Qualifiers PATEINT BEING DISCHARGED WITH ANY OF THE FOLLOWING DIAGNOSIS?: No Plan Discharge Plan: Follow-up with primary care physician in one week. Follow-up with Dr. Durant in 1 -2 weeks. Time Spent: Less than 30 Minutes
--- NOTE | 2017-01-04 19:43 | PROGRESS NOTE E ---
Progress Note NAME: SKY PRICE : 1975 AGE: 41Y DATE: 01/04/2017 ROOM: 532 SUBJECTIVE: Note that the patient was seen between 1245 hours and 1330 hours. Note that the patient had no further SVT. He denies any chest pain or discomfort. There are no ventricular arrhythmias on the monitor. There are no atrial arrhythmias on the monitor. There are no A-V blocks or pauses. There is no shortness of breath. There is no PND, orthopnea or palpitations. There are no TIA or CVA symptoms. The patient underwent an IV Lexiscan Cardiolite stress test earlier today, the results of which are given below. OBJECTIVE: GENERAL: On examination, the patient is mildly obese in no acute distress. He is well nourished, well groomed. VITAL SIGNS: He is afebrile with a temperature of 97.3 degrees Fahrenheit, pulse is 80 beats per minute, blood pressure is 131/75, respirations 16 per minute, O2 saturation 98% on room air. HEENT: Head is atraumatic and normocephalic. Eyes, pupils are equal, round, regular, reactive to light and accommodation. Extraocular movements are normal. There is no conjunctival pallor. There is no scleral icterus. Ears, tympanic membranes are intact. External auditory canals are clear. Nose, there is no deviated nasal septum. There are some nasal polyps present. Mouth, mucous membranes are moist. Tongue is moist. There are no ulcers. There is no bleeding from the gums. There is no redness of the oropharynx. There are no exudates in the throat. SKIN: There are no skin rashes. There are no skin lesions. There is no petechia or ecchymosis. NECK: Supple. There is no JVD. There is no lymphadenopathy. There is no goiter. There is no neck stiffness. Carotids are equal. There is no bruit. Trachea is central. LUNGS: Clear to auscultation and percussion. HEART: S1 and S2 are heard. There is no S3 gallop. There is no S4 gallop. There is a systolic murmur at the left sternal border at the apex without radiation. There is no rub. ABDOMEN: Soft, nontender. There is no hepatosplenomegaly. Bowel sounds are well heard. There are no tender areas or masses. There is no rebound, guarding, or rigidity. EXTREMITIES: Femorals are well felt. Leg pulses are well felt. There are no femoral bruits. There is no pedal edema. There is no DVT or cellulitis. There is no calf tenderness. There is no cyanosis or clubbing. CENTRAL NERVOUS SYSTEM: The patient is conscious, awake, alert, oriented x3 with no focal deficits. PSYCHIATRIC: The patient's judgment and insight are intact. His affect was normal. LABORATORY: Note that the patient's troponin-I was less than 0.012 this morning. Yesterday afternoon, it was 0.031. The patient's liver function tests show AST of 60 which is down from 63. The patient's ALT is 93 from prior of 98. ECHOCARDIOGRAM: Note that the patient had an echocardiogram which was discussed with the patient last evening and again today. The echocardiogram shows that the left ventricle is of normal size. There is left ventricular wall thickness and ejection fraction of greater than 60%. Left ventricular systolic function is normal. Doppler measurements suggest normal left ventricular diastolic function. The left ventricular wall motion is normal. There is no thrombus. There is no ventricular septal defect visualized. The right ventricle is normal in size and function. The left atrial size is normal. There is no evidence of mitral valve prolapse. There are no vegetations seen on the mitral valve. There is no mitral valve stenosis. There is trace amount of mitral regurgitation. There is no aortic valve stenosis. There is no LVOT obstruction. There is no aortic regurgitation present. There is no tricuspid stenosis. There is trace amount of tricuspid regurgitation. The right ventricular systolic pressure is within normal limits and is 27 mmHg with a right atrial mean of 5. There is no pericardial effusion. IMAGING: The patient had an IV Lexiscan Cardiolite stress test today and this showed no reversible ischemia and there was no myocardial infarction or scar. The left ventricular ejection fraction was estimated at 48%. respectively the rest and stress images, but visually they were greater than 55. Also, there was evidence that the patient's LV ejection fraction is within normal limits. IMPRESSION: 1. SVT CONVERTED TO SINUS RHYTHM, REMAINS IN SINUS RHYTHM ON SMALL DOSE OF BETA KAT. 2. ELEVATED TROPONIN-I MOST LIKELY SECONDARY TO SVT. THIS HAS COME DOWN. 3. HYPERTENSION. 4. ABNORMAL LFTS. THE LFTS ARE STILL ABNORMAL, BUT SLIGHTLY IMPROVED. 5. GASTROESOPHAGEAL REFLUX DISEASE. 6. OBSTRUCTIVE SLEEP APNEA ON CPAP. 7. DYSLIPIDEMIA WITH LOW LDL, HIGH HDL AND ALSO HYPERTRIGLYCERIDEMIA. RECOMMENDATIONS: 1. Continue lisinopril. 2. Continue beta kat. Will increase as tolerated as an outpatient. 3. Continue aspirin. 4. The patient's echocardiographic findings were rediscussed with the patient. Also discussed the findings of the stress test with the patient. Discussed also the abnormal liver function tests with the patient. Would recommend a *------* to make sure that the current dose of beta kat is adequate. 5. Will try to increase the patient's metoprolol to 25 mg p.o. b.i.d. as an outpatient. 6. After questioning the patient, he desires to follow up with me which I have discussed with the hospitalist. 7. The patient has been advised to continue BiPAP. 8. Smoking cessation counseling was also given and also the patient was counseled against the use of alcohol in view of the abnormal liver function tests. 9. Will also recommend that the patient be referred to a commercial construction superintendent as an outpatient. 10. I given my cell phone number to the patient to call me if he has any problems. Will have my office arrange for 30-day event monitor . NOTE: 25 minutes spent on this patient, more than 50% of the time spent on direct patient care. Also, the patient's medications were reviewed and also discussed discharge medications with the hospitalist. Note, the patient will be sent home on the current medical therapy and further outpatient testing will be done and this has been explained to the patient, hence medical decision making was at least moderate complexity. Will sign off the case. DICTATING PHYSICIAN: BRENDA RODRIGUEZ M.D. [id number] PHY#: [id number] ID: [id number] JOB#: [id number] ACCT: [id number] cc: >
--- NOTE | 2017-01-04 21:04 | DRAGON STRESS TEST REPORT ---
Intravenous Lexiscan Cardiolite stress test using single photon emmision computerized tomography. Date of procedure: 01/04/2017 Ordering Provider: Dr. Dania Fischer Patient's status: Inpatient Indication: SVT and Chest pain. Coronary risk factors: Age +/-, hypertension, dyslipidemia and tobacco abuse disorder. Resting EKG: Sinus Rhythm. Within Normal Limits Stress EKG: No changes of ischemia. The patient had no chest pain or discomfort, and there were no arrhythmias seen. Reason for termination: Protocol. Conclusions: Normal EKG and hemodynamic response to IV Lexiscan. Nuclear data: At rest the patient was given 15.09 millicuries of technetium 99m sestamibi injected intravenously. As per protocol rest non gated SPECT images were obtained. Subsequently the patient was given intravenous Lexiscan at a dose of 0.4 mg in 5 mL intravenously, followed by flush with normal saline. Subsequently the stress dose of 48.7 millicuries of technetium 99m sestamibi was injected intravenously. As per protocol stress gated images were obtained. Nuclear interpretation: Review of images showed that all segments of the myocardium had normal perfusion at rest, and normal perfusion post stress with IV Lexiscan. All segments of the myocardium had normal motion, contraction, and thickening by gated study. T. I D. ratio was normal at 1.00. Computer read rest, and stress left ventricular ejection fraction were 48 %, and 48 %, respectively. Visually both the stress and rest ejection fractions were normal, and greater than 55%. Conclusion: 1. There is no scintigraphic evidence of Lexiscan induced myocardial ischemia. 2. There is no scintigraphic evidence of myocardial infarction/scar. Recommendations: Aggressive risk factor modification, and treating the underlying co- morbidities , especially tobacco cessation counseling.. MTDD
== END 2017-01-04 17:30 | disposition home or self-care (01) | DRG 310 ==
LOC: ER 14:24 → EH 22:30 → UNDOADMOB 22:50 → EH 22:50 → 5 01-03 00:25 → OBSVTOIN 01-03 10:57
PROVIDERS: ADMIT Internal Medicine; ATTEND Internal Medicine
PROC: 5A09457 Assistance with Respiratory Ventilation, 24-96 Consecutive Hours, Continuous Positive Airway Pressure (ICD-10-PCS; principal; 2017-01-03)
DX: I47.1 Supraventricular tachycardia (principal); I10 Essential (primary) hypertension; E78.5 Hyperlipidemia, unspecified; G47.33 Obstructive sleep apnea (adult) (pediatric); K21.9 Gastro-esophageal reflux disease without esophagitis; F17.210 Nicotine dependence, cigarettes, uncomplicated; E05.00 Thyrotoxicosis with diffuse goiter without thyrotoxic crisis or storm; J33.9 Nasal polyp, unspecified; R79.89 Other specified abnormal findings of blood chemistry; I08.1 Rheumatic disorders of both mitral and tricuspid valves; E66.01 Morbid (severe) obesity due to excess calories; Z68.32 Body mass index [BMI] 32.0-32.9, adult; Z79.82 Long term (current) use of aspirin; Z79.899 Other long term (current) drug therapy; Z86.010 Personal history of colon polyps; Z88.0 Allergy status to penicillin; Z82.49 Family history of ischemic heart disease and other diseases of the circulatory system; Z82.3 Family history of stroke
CPT/HCPCS: 36415; 71010; 76536; 78452; 80048; 80053; 80061; 80076; 80307; 81001; 82550; 82553; 83519; 83735; 84439; 84443; 84481; 84484; 85025; 93005; 93010; 93017; 93306; 94660; 96372; 99285; A9500; G0378; J1644; J2785; J3490; J7030; Q9969

== ENCOUNTER 2017-04-08 18:28 | Emergency (ER) | payer MEDICAID ==
--- NOTE | 2017-04-08 19:19 | EKG REPORT ---
SEVERITY:- BORDERLINE ECG - SINUS RHYTHM BORDERLINE T WAVE ABNORMALITIES : Confirmed by: Pierce Gar MD 08-Apr-2017 19:18:32
--- NOTE | 2017-04-08 19:30 | ER Document Report ---
ED Medical Screen (RME) - General Chief Complaint: Abdominal Pain Stated Complaint: CHEST PAIN Time Seen by Provider: 04/08/17 19:22 Notes: 41-year-old male patient complains of constipation for the last several days. Normally takes MiraLAX for problems like this. He complains of pain in the upper abdomen making him feel like he is full and backed up and twisting type pain in the left lower quadrant. There is no fever, there is no nausea vomiting or diarrhea. I have greeted and performed a rapid initial assessment of this patient. A comprehensive ED assessment and evaluation of the patient, analysis of test results and completion of the medical decision making process will be conducted by additional ED providers. TRAVEL OUTSIDE OF THE [place] IN LAST 30 DAYS: No - Related Data Allergies/Adverse Reactions: Penicillins Allergy (Verified 01/02/17 21:13) Past Medical History - Past Medical History Cardiac Medical History: Reports: Hx Hypertension Pulmonary Medical History: Reports: Hx Sleep Apnea Renal/ Medical History: Denies: Hx Peritoneal Dialysis GI Medical History: Reports: Hx Gastroesophageal Reflux Disease Past Surgical History: Reports: Other - Nasal polypectomy - Immunizations Hx Diphtheria, Pertussis, Tetanus Vaccination: Yes Physical Exam - Vital signs Vitals: Temp Pulse Resp BP Pulse Ox 98.0 F 80 19 144/92 H 98 04/08/17 18:40 04/08/17 18:40 04/08/17 18:40 04/08/17 18:40 04/08/17 18:40 Course - Vital Signs Vital signs: Temp Pulse Resp BP Pulse Ox 98.0 F 80 19 144/92 H 98 04/08/17 18:40 04/08/17 18:40 04/08/17 18:40 04/08/17 18:40 04/08/17 18:40
--- NOTE | 2017-04-08 19:53 | RADIOLOGY REPORT (SQ) ---
EXAM DESCRIPTION: KUB/ABDOMEN (SINGLE VIEW) COMPLETED DATE/TIME: 04/08/2017 7:36 pm REASON FOR STUDY: constipation, abd pain COMPARISON: None. NUMBER OF VIEWS: One view. TECHNIQUE: Supine radiographic image of the abdomen acquired. LIMITATIONS: None. FINDINGS: BOWEL GAS PATTERN: Normal bowel gas pattern. No dilated loops. CALCIFICATIONS: No suspicious calcifications. SOFT TISSUES: No gross mass or suggestion of organomegaly. HARDWARE: None in the abdomen. BONES: No acute fracture. No worrisome bone lesions. OTHER: No other significant finding. IMPRESSION: NO RADIOGRAPHIC EVIDENCE FOR ACUTE ABDOMINAL DISEASE. TECHNICAL DOCUMENTATION: JOB ID: [id number] [facility]- All Rights Reserved
--- NOTE | 2017-04-08 21:37 | ER Document Report ---
HPI - HPI Pain Level: 3 Notes: Patient is a 41-year-old male with a history of gastroparesis, GERD, hypertension who presents the ED complaining of constipation 4-5 days. Patient states that he has not had a good bowel movement since then. Patient states that he has been using MiraLAX with minimal relief. Patient states that he does have chronic issues with constipation due to gastroparesis. Denies any history of diabetes. Patient complains of a left lower quadrant pain and generalized bloating. Pain is described as a sharp, crampy pain. His bowel movements are usually small and hard. He has not noticed any melena or hematochezia. Patient states that he has not had anything to eat today because he feels like the food is just sitting in his stomach. Patient denies any weight loss. No other concerns or complaints at this time. Patient states that he is not taking any specific medication for his gastroparesis. Denies any headache, fever, URI, sore throat, chest pain, palpitations, syncope, cough , shortness of breath, wheeze, dyspnea, nausea/vomiting/diarrhea, urinary retention, dysuria, hematuria, loss of control of bowel or bladder, back pain, numbness/tingling, saddle anesthesia, muscle paralysis/weakness, or rash. - ROS Notes: REVIEW OF SYSTEMS: CONSTITUTIONAL : Denies fever, chills, or sweats. Denies recent illness. EENT: Denies eye, ear, throat, or mouth pain or symptoms. Denies nasal or sinus congestion or discharge. Denies throat, tongue, or mouth swelling or difficulty swallowing. CARDIOVASCULAR: Denies chest pain. Denies palpitations or racing or irregular heart beat. Denies ankle edema. RESPIRATORY: Denies cough, cold, or chest congestion. Denies shortness of breath, difficulty breathing, or wheezing. GASTROINTESTINAL: see hpi GENITOURINARY: Denies difficulty urinating, painful urination, burning, frequency, blood in urine, or discharge. MUSCULOSKELETAL: Denies back or neck pain or stiffness. Denies joint pain or swelling. SKIN: Denies rash, lesions or sores. NEUROLOGICAL: Denies confusion or altered mental status. Denies passing out or loss of consciousness. Denies dizziness or lightheadedness. Denies headache. Denies weakness or paralysis or loss of use of either side. Denies problems with gait or speech. Denies sensory loss, numbness, or tingling. ALL OTHER SYSTEMS REVIEWED AND NEGATIVE. Dictation was performed using [employer] voice recognition software - REPRODUCTIVE Reproductive: DENIES: : - DERM Skin Color: Normal Past Medical History - Social History Smoking Status: Former Smoker Family History: Hypertension - Past Medical History Cardiac Medical History: Reports: Hx Hypertension Pulmonary Medical History: Reports: Hx Sleep Apnea Renal/ Medical History: Denies: Hx Peritoneal Dialysis GI Medical History: Reports: Hx Gastroesophageal Reflux Disease Past Surgical History: Reports: Other - Nasal polypectomy - Immunizations Hx Diphtheria, Pertussis, Tetanus Vaccination: Yes Vertical Provider Document - CONSTITUTIONAL Agree With Documented VS: Yes Notes: PHYSICAL EXAMINATION: GENERAL: Well-appearing, well-nourished and in no acute distress. LUNGS: Breath sounds clear to auscultation bilaterally and equal. No wheezes rales or rhonchi. HEART: Regular rate and rhythm without murmurs, rubs, gallops. ABDOMEN: Soft, nondistended abdomen. No guarding, no rebound. No masses appreciated. Normal bowel sounds present. No CVA tenderness bilaterally. + mild tenderness to palpation of the left lower quadrant. + stool palpated as well. Musculoskeletal: LE's b/l: FROM to passive/active. Strength 5+/5. Extremities: No cyanosis, clubbing, or edema b/l. Peripheral pulses 2+. Capillary refill less than 3 seconds. NEUROLOGICAL: Normal speech, normal gait. Normal sensory, motor exams PSYCH: Normal mood, normal affect. SKIN: Warm, Dry, normal turgor, no rashes or lesions noted. - INFECTION CONTROL TRAVEL OUTSIDE OF THE [place] IN LAST 30 DAYS: No - RESPIRATORY O2 Sat by Pulse Oximetry: 98 Course - Re-evaluation Re-evalutation: 04/08/17 01:45 Patient is an afebrile, well-hydrated, 41-year-old male who presents the ED with constipation secondary to his gastroparesis. Vitals are stable. PE otherwise unremarkable at this time. X-ray showed abundant stool in the colon without any obstruction at this time. An enema of saline and mineral oil was given x2 in the ED. Miralax 17gm packet was also given. CBC and CMP were unremarkable for acute pathology. Pt states that overall he feels better than he did when he first arrived. Reviewed case with Dr. Orta who is in agreement with discharge/plan. All questions answered that was asked by the patient. Conservative measures otherwise for symptoms. Recheck with his GI doctor/PCM tomorrow. Return precautions reviewed. Return to the ED with any worsening/ concerning symptoms otherwise as reviewed in discharge. Patient is in agreement. Low suspicion/risk for acute appendicitis, bowel obstruction, acute cholecystitis, perforated diverticulitis, incarcerated hernia, pancreatitis, perforated ulcer, peritonitis, or sepsis. Patient is aware that his condition can change from initial presentation and he needs to monitor symptoms closely and seek medical attention if any acute changes. - Vital Signs Vital signs: Temp Pulse Resp BP Pulse Ox 98.0 F 80 19 144/92 H 98 04/08/17 18:40 04/08/17 18:40 04/08/17 18:40 04/08/17 18:40 04/08/17 18:40 - Laboratory Result Diagrams: 04/08/17 00:29 04/08/17 00:29 Discharge - Discharge Clinical Impression: Constipation Qualifiers: Constipation type: unspecified constipation type Qualified Code(s): K59.00 - Constipation, unspecified Condition: Stable Disposition: HOME, SELF-CARE Instructions: Abdominal Pain ([facility]), Constipation ([facility]) Additional Instructions: Push fluids Take home medication as directed Monitor symptoms closely Use MiraLAX daily Recheck with your PCM/gastroenterology tomorrow* Return to the ED with any worsening symptoms and/or development of fever, headache, chest pain, palpitations, syncope, shortness of breath, trouble breathing, abdominal pain, n/v/d, blood in stool/urine, loss of control of bowel /bladder, urinary retention, dysuria, or other worsening symptoms that are concerning to you. Forms: Elevated Blood Pressure Referrals: GASTROENTEROLOGY [Provider Group] - Follow up tomorrow
[2017-04-08] MEDS ORDERED: MINERAL OIL 30 ML UDCUP ONE (21:56)
[2017-04-08] MEDS ORDERED: POLYETHYLENE GLYCOL 3350 POWDER 17 GM/1 PACKET PO ONE (22:56)
[2017-04-09 00:38] LABS: ABSOLUTE BASOPHILS # (AUTO) 0.1 10^3/uL (0.0-0.2); ABSOLUTE EOSINOPHILS # (AUTO) 0.1 10^3/uL (0.0-0.6); ABSOLUTE LYMPHOCYTES (AUTO) 2.7 10^3/uL (0.5-4.7); ABSOLUTE MONOCYTES (AUTO) 0.3 10^3/uL (0.1-1.4); ABSOLUTE NEUT (AUTO) 2.2 10^3/uL (1.7-8.2); HEMATOCRIT 43.2 % (37.9-51.0); HEMOGLOBIN 14.9 g/dL (13.5-17.0); HGB HCT DIFFERENCE 1.5; MEAN CORPUSCULAR HEMOGLOBIN 33.3 pg (27.0-33.4); MEAN CORPUSCULAR HGB CONC 34.4 g/dL (32.0-36.0); MEAN CORPUSCULAR VOLUME 97 fl (80-97); RED BLOOD COUNT 4.47 10^6/uL (4.35-5.55); RED CELL DISTRIBUTION WIDTH 14.1 % (11.5-14.0); WHITE BLOOD COUNT 5.3 10^3/uL (4.0-10.5)
[2017-04-09] MEDS ORDERED: MINERAL OIL 30 ML UDCUP ONE (00:49)
[2017-04-09 01:02] LABS: ALANINE AMINOTRANSFERASE 63 U/L (21-72); ALBUMIN 4.4 g/dL (3.5-5.0); ALKALINE PHOSPHATASE 67 U/L (38-126); ANION GAP 11 (5-19); ASPARTATE AMINO TRANSFERASE 40 U/L (17-59); BILIRUBIN,DIRECT 0.4 mg/dL (0.0-0.4); BILIRUBIN,TOTAL 0.7 mg/dL (0.2-1.3); BLOOD UREA NITROGEN 11 mg/dL (7-20); CALCIUM 10.1 mg/dL (8.4-10.2); CARBON DIOXIDE 27 mmol/L (22-30); CHLORIDE 103 mmol/L (98-107); GLUCOSE 80 mg/dL (75-110); POTASSIUM 3.9 mmol/L (3.6-5.0); SODIUM 141.2 mmol/L (137-145); TOTAL PROTEIN 8.1 g/dL (6.3-8.2)
[2017-04-09 02:05] VITALS: BP 141/89
== END 2017-04-09 02:03 | disposition home or self-care (01) ==
LOC: ER 18:28
DX: K59.00 Constipation, unspecified (principal); K31.84 Gastroparesis; K21.9 Gastro-esophageal reflux disease without esophagitis; I10 Essential (primary) hypertension; Z87.891 Personal history of nicotine dependence
CPT/HCPCS: 93005; 99285; 36415; 83690; 85025; 80053; 74000; 93010; J3490 ×3

== ENCOUNTER 2017-09-21 17:41 | Emergency (ER) | payer MEDICAID ==
--- NOTE | 2017-09-21 18:42 | ER Document Report ---
ED General - General Chief Complaint: Chest Pain Stated Complaint: CHEST PAIN Time Seen by Provider: 09/21/17 18:18 Mode of Arrival: Ambulatory Information source: Patient Notes: 41-year-old male history of SVT palpitations presents with complaints of palpitations. Patient notes he is on metoprolol and with the medication he believes his palpitations worsen, he notes that it only occurs at nighttime when he is laying flat when he is walking exercising he has no such symptoms. Patient denies any fevers or chills denies any actual chest pain but feels a thumping sensation in his chest TRAVEL OUTSIDE OF THE [place] IN LAST 30 DAYS: No - HPI Onset: Last week Onset/Duration: Intermittent Quality of pain: Throbbing Severity: Mild Pain Level: Denies Associated symptoms: Other Exacerbated by: Denies Relieved by: Denies Similar symptoms previously: Yes Recently seen / treated by doctor: Yes - Related Data Allergies/Adverse Reactions: Penicillins Allergy (Verified 09/21/17 17:42) Past Medical History - Social History Smoking Status: Current Every Day Smoker Cigarette use (# per day): Yes Chew tobacco use (# tins/day): No Smoking Education Provided: No Frequency of alcohol use: None Drug Abuse: None Family History: Hypertension Patient has suicidal ideation: No Patient has homicidal ideation: No - Past Medical History Cardiac Medical History: Reports: Hx Hypertension Pulmonary Medical History: Reports: Hx Sleep Apnea Renal/ Medical History: Denies: Hx Peritoneal Dialysis GI Medical History: Reports: Hx Gastroesophageal Reflux Disease Past Surgical History: Reports: Other - Nasal polypectomy - Immunizations Hx Diphtheria, Pertussis, Tetanus Vaccination: Yes Review of Systems - Review of Systems Notes: REVIEW OF SYSTEMS: CONSTITUTIONAL : Denies fever, chills, or sweats. Denies recent illness. EENT: Denies eye, ear, throat, or mouth pain or symptoms. Denies nasal or sinus congestion or discharge. Denies throat, tongue, or mouth swelling or difficulty swallowing. CARDIOVASCULAR: Admits to palpitations RESPIRATORY: Denies cough, cold, or chest congestion. Denies shortness of breath, difficulty breathing, or wheezing. GASTROINTESTINAL: Denies abdominal pain or distention. Denies nausea, vomiting , or diarrhea. Denies blood in vomitus, stools, or per rectum. Denies black, tarry stools. Denies constipation. GENITOURINARY: Denies difficulty urinating, painful urination, burning, frequency, blood in urine, or discharge. MUSCULOSKELETAL: Denies back or neck pain or stiffness. Denies joint pain or swelling. SKIN: Denies rash, lesions or sores. HEMATOLOGIC : Denies easy bruising or bleeding. LYMPHATIC: Denies swollen, enlarged glands. NEUROLOGICAL: Denies confusion or altered mental status. Denies passing out or loss of consciousness. Denies dizziness or lightheadedness. Denies headache. Denies weakness or paralysis or loss of use of either side. Denies problems with gait or speech. Denies sensory loss, numbness, or tingling. Denies seizures. PSYCHIATRIC: Denies anxiety or stress. Denies depression, suicidal ideation, or homicidal ideation. ALL OTHER SYSTEMS REVIEWED AND NEGATIVE. Dictation was performed using [employer] voice recognition software PHYSICAL EXAMINATION: GENERAL: Well-appearing, well-nourished and in no acute distress. HEAD: Atraumatic, normocephalic. EYES: Pupils equal round and reactive to light, extraocular movements intact, sclera anicteric, conjunctiva are normal. ENT: Nares patent, oropharynx clear without exudates. Moist mucous membranes. NECK: Normal range of motion, supple without lymphadenopathy LUNGS: Breath sounds clear to auscultation bilaterally and equal. No wheezes rales or rhonchi. HEART: Regular rate and rhythm without murmurs ABDOMEN: Soft, nontender, nondistended abdomen. No guarding, no rebound. No masses appreciated. Musculoskeletal: Normal range of motion, no pitting or edema. No cyanosis. NEUROLOGICAL: Cranial nerves grossly intact. Normal speech, normal gait. Normal sensory, motor exams PSYCH: Normal mood, normal affect. SKIN: Warm, Dry, normal turgor, no rashes or lesions noted. Physical Exam - Vital signs Vitals: Temp Pulse Resp BP Pulse Ox 97.9 F 73 18 138/86 H 99 09/21/17 18:01 09/21/17 18:01 09/21/17 18:01 09/21/17 18:01 09/21/17 18:01 Course - Re-evaluation Re-evalutation: 09/21/17 19:52 EKG is consistent with a sinus arrhythmia, there is no SVT or life-threatening arrhythmias noted, I believe the patient's presentation is consistent with PVCs lab work noted no significant abnormality, I will have the patient follow-up with his documentation writer Dr. Contreras for Holter monitor placement patient is very happy with this plan After performing a Medical Screening Examination, I estimate there is LOW risk for RUPTURED ESOPHAGUS, PNEUMOTHORAX, PULMONARY EMBOLISM, ACUTE CORONARY SYNDROME, OR THORACIC AORTIC DISSECTION, thus I consider the discharge disposition reasonable. I have reevaluated this patient multiple times and no significant life threatening changes are noted. The patient and I have discussed the diagnosis and risks, and we agree with discharging home with close follow-up. We also discussed returning to the Emergency Department immediately if new or worsening symptoms occur. We have discussed the symptoms which are most concerning (e.g., bloody sputum, worsening pain or shortness of breath) that necessitate immediate return. - Vital Signs Vital signs: Temp Pulse Resp BP Pulse Ox 97.9 F 73 18 138/86 H 99 09/21/17 18:01 09/21/17 18:01 09/21/17 18:01 09/21/17 18:01 09/21/17 18:01 - Laboratory Result Diagrams: 09/21/17 18:50 09/21/17 18:50 Laboratory results interpreted by me: 09/21/17 09/21/17 18:50 18:50 RDW 14.2 H Seg Neutrophils % 33.8 L Lymphocytes % 53.6 H Carbon Dioxide 33 H Calcium 10.5 H - Diagnostic Test Radiology reviewed: Image reviewed, Reports reviewed - EKG Interpretation by Al EKG shows normal: Pierce, Intervals, QRS Complexes. abnormal: Sinus rhythm Discharge - Discharge Clinical Impression: PVC (premature ventricular contraction) Condition: Stable Disposition: HOME, SELF-CARE Instructions: Chest Pain of Unclear Cause ([facility]) Referrals: SANDRITA CONTRERAS MD [ACTIVE STAFF] - Follow up tomorrow
[2017-09-21 19:14] LABS: ABSOLUTE EOSINOPHILS # (AUTO) 0.2 10^3/uL (0.0-0.6); ABSOLUTE LYMPHOCYTES (AUTO) 2.9 10^3/uL (0.5-4.7); ABSOLUTE MONOCYTES (AUTO) 0.5 10^3/uL (0.1-1.4); ABSOLUTE NEUT (AUTO) 1.8 10^3/uL (1.7-8.2); BASOPHILS % (AUTO) 0.2 % (0-2); EOSINOPHILS % (AUTO) 3.5 % (0-6); HEMATOCRIT 45.6 % (37.9-51.0); HEMOGLOBIN 15.6 g/dL (13.5-17.0); LYMPHOCYTES % (AUTO) 53.6 % (13-45); MEAN CORPUSCULAR HEMOGLOBIN 32.4 pg (27.0-33.4); MEAN CORPUSCULAR HGB CONC 34.2 g/dL (32.0-36.0); MEAN CORPUSCULAR VOLUME 95 fl (80-97); MONOCYTES % (AUTO) 8.9 % (3-13); PLATELET COUNT 216 10^3/uL (150-450); RED BLOOD COUNT 4.81 10^6/uL (4.35-5.55); RED CELL DISTRIBUTION WIDTH 14.2 % (11.5-14.0); SEGMENTED NEUTROPHILS % (AUTO) 33.8 % (42-78); TOTAL CELLS COUNTED % (AUTO) 100 %; WHITE BLOOD COUNT 5.4 10^3/uL (4.0-10.5)
[2017-09-21 19:36] LABS: ALANINE AMINOTRANSFERASE 51 U/L (21-72); ALBUMIN 4.4 g/dL (3.5-5.0); ALKALINE PHOSPHATASE 72 U/L (38-126); ANION GAP 7 (5-19); ASPARTATE AMINO TRANSFERASE 32 U/L (17-59); BILIRUBIN,DIRECT 0.2 mg/dL (0.0-0.4); BILIRUBIN,TOTAL 0.5 mg/dL (0.2-1.3); BLOOD UREA NITROGEN 10 mg/dL (7-20); CALCIUM 10.5 mg/dL (8.4-10.2); CARBON DIOXIDE 33 mmol/L (22-30); CHLORIDE 104 mmol/L (98-107); GLUCOSE 78 mg/dL (75-110); SODIUM 143.5 mmol/L (137-145); TOTAL PROTEIN 7.7 g/dL (6.3-8.2)
[2017-09-21 20:47] VITALS: BP 124/88
--- NOTE | 2017-09-22 11:56 | EKG REPORT ---
SEVERITY:- BORDERLINE ECG - SINUS ARRHYTHMIA, RATE 60-83 BORDERLINE T ABNORMALITIES, LATERAL LEADS : Confirmed by: Dania Fischer MD 22-Sep-2017 11:55:58
== END 2017-09-21 19:55 | disposition home or self-care (01) ==
LOC: ER 17:41
DX: I49.3 Ventricular premature depolarization (principal); I10 Essential (primary) hypertension; Z79.899 Other long term (current) drug therapy; F17.200 Nicotine dependence, unspecified, uncomplicated; Z88.0 Allergy status to penicillin
CPT/HCPCS: 36415; 80053; 83735; 85025; 93005; 93010; 99285

== ENCOUNTER → 2017-10-29 | Outpatient (CLI) | payer MEDICAID ==
--- NOTE | 2017-10-29 15:53 | XCELERA REPORT ---
[address] [address] Tel: [phone] Fax: [phone] Lower Extremity Arterial Evaluation Name: SKY PRICE JR Age: 42 yrs Gender: Male : 1975 Patient Status: Outpatient Patient Location: [facility] Study Date: 10/29/2017 01:44 PM Procedure: Ankle brachial indicies performed. Reason For Study: PAIN Ordering Physician: SANDRITA CONTRERAS Performed By: Ashley Easton Right Side Arterial Evaluation IRAIS:1.07. Left Side Arterial Evaluation IRAIS:1.04. Interpretation Summary Ankle Brachial indices and waveforms are within normal limits. : SANDRITA CONTRERAS > Alex Lopez
== END ==
LOC: SP 13:41
PROVIDERS: ATTEND Internal Medicine Cardiovascular Disease
DX: M79.606 Pain in leg, unspecified (principal)
CPT/HCPCS: 93922